=== PATIENT | male | born 2000 | race Caucasian/White ===

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

== ENCOUNTER 2023-06-11 20:19 | Emergency (ER) | payer OTHER, SELFPAY ==
[2023-06-11] MEDS ORDERED: Morphine 4 MG/ML VIAL ONE ×2 (20:54→22:06)
[2023-06-11] MEDS ORDERED: Ondansetron PF 4 MG/2 ML Vial ONE (20:54)
[2023-06-11] MEDS ORDERED: Ketorolac Tromethamine 30 MG/ML VIAL ONE (20:54)
[2023-06-11] MEDS ORDERED: Boostrix 0.5 ML (Tdap) VIAL (>/=7 yrs of age) ONE (21:06)
[2023-06-11] MEDS ORDERED: Lidocaine 1% w/Epinephrine 1:100K 20 ML VIAL ONE (22:06)
== END 2023-06-12 00:06 | disposition home or self-care (01) ==
LOC: ERS 20:19
DX: S51.841A Puncture wound with foreign body of right forearm, initial encounter (principal); F17.210 Nicotine dependence, cigarettes, uncomplicated; W20.8XXA Other cause of strike by thrown, projected or falling object, initial encounter; W45.8XXA Other foreign body or object entering through skin, initial encounter; Z23 Encounter for immunization
CPT/HCPCS: 10120; 12001; 90471; 90715; 96374; 96375; 96376; J1885; J2270; J2405

== ENCOUNTER 2024-03-08 09:04 | Emergency (ER) | payer SELFPAY ==
[2024-03-08] MEDS ORDERED: Fluorescein Opthalmic Strip ONE (10:04)
[2024-03-08] MEDS ORDERED: Proparacaine 0.5% Opth 15 ML BOT ONE (10:04)
== END 2024-03-08 13:20 | disposition home or self-care (01) ==
LOC: ERS 09:04
DX: H10.211 Acute toxic conjunctivitis, right eye (principal); F17.210 Nicotine dependence, cigarettes, uncomplicated
CPT/HCPCS: 99282

== ENCOUNTER 2024-07-26 00:10 | Emergency (ER) | payer SELFPAY ==
[2024-07-26 00:24] LABS: #Basophils 0.05 10x3/uL (0.0-0.2); %Basophils 0.5 % (0.0-1.0); %Eosinophils 2.5 % (0.0-10.0); %Lymphocytes 29.7 % (21.0-51.0); %Monocytes 7.2 % (0.0-10.0); %Neutrophils 57.7 % (42.0-75.0); Hematocrit 48.7 % (42.0-52.0); Hemoglobin 16.2 g/dL (14.0-18.0); Mean Corpuscular HGB CONC 33.3 g/dL (32.0-36.0); Mean Corpuscular Volume 90.2 fL (78.0-98.0); Mean Platelet Volume 9.7 fL (7.4-10.4); Platelet Count 263 10x3/uL (130-400); RBC Distribution Width 12.3 % (11.5-14.5)
[2024-07-26 00:37] LABS: Alcohol 90.7 mg/dL (Less than 10)
[2024-07-26 00:39] LABS: ALT (SGPT) 89 U/L (8-55); AST (SGOT) 65 U/L (5-34); Albumin 4.2 g/dL (3.5-5.0); Alkaline Phosphatase 54 U/L (40-110); Anion Gap 19 mmol/L (10-20); BUN (Urea Nitrogen) 12 mg/dL (8.9-20.6); Bilirubin, Total 0.2 mg/dL (0.2-1.2); Calc. Creatinine Clearance 0 mL/min (70-130); Carbon Dioxide 23 mmol/L (22-29); Chloride 104 mmol/L (98-107); Estimated GFR 130; Globulin 3.9 g/dL (2.4-3.5); Glucose 104 mg/dL (70-105); Potassium 3.5 mmol/L (3.5-5.1); Protein, Total 8.1 g/dL (6.0-8.3); Sodium 142 mmol/L (136-145)
[2024-07-26] MEDS ORDERED: Boostrix 0.5 ML (Tdap) VIAL (>/=7 yrs of age) ONE (01:45)
[2024-07-26] MEDS ORDERED: Iopamidol 370 76% 100 ML VIAL ONE (06:59)
== END 2024-07-26 02:50 | disposition home or self-care (01) ==
LOC: ERS 00:10
DX: S16.1XXA Strain of muscle, fascia and tendon at neck level, initial encounter (principal); F17.210 Nicotine dependence, cigarettes, uncomplicated; V89.2XXA Person injured in unspecified motor-vehicle accident, traffic, initial encounter
CPT/HCPCS: 70450; 71260; 72125; 74177; 80053; 80307; 85025; 90471; 90715; G0390; Q9967

== ENCOUNTER 2025-05-12 08:01 | Emergency (ER) | payer SELFPAY ==
[2025-05-12] MEDS ORDERED: Lidocaine 1% w/Epinephrine 1:100K 20 ML VIAL ONE (08:12)
[2025-05-12] MEDS ORDERED: Ketorolac Tromethamine 30 MG (1 mL) VIAL ONE (08:53)
[2025-05-12] MEDS ORDERED: Bacitracin 1 PK ONE (10:23)
[2025-05-12] MEDS ORDERED: cefTRIAXone (ROCEPHIN) 2 GM VIAL ONE (11:23)
[2025-05-12] MEDS ORDERED: Lidocaine 1% PF 5 ML VIAL ONE (11:23)
== END 2025-05-12 13:30 | disposition home or self-care (01) ==
LOC: ERS 08:01
DX: S62.612A Displaced fracture of proximal phalanx of right middle finger, initial encounter for closed fracture (principal); S62.633A Displaced fracture of distal phalanx of left middle finger, initial encounter for closed fracture; F17.210 Nicotine dependence, cigarettes, uncomplicated; W22.01XA Walked into wall, initial encounter
CPT/HCPCS: 96372; 99283; J0696; J1885

== ENCOUNTER 2025-09-13 21:08 | Emergency (ER) | payer SELFPAY ==
[2025-09-13 21:32] LABS: #Basophils 0.04 10x3/uL (0.0-0.2); #Eosinophils 0.03 10x3/uL (0.0-0.7); #Monocytes 0.54 10x3/uL (0.11-0.59); #Neutrophils 2.93 10x3/uL (1.40-6.50); %Basophils 0.6 % (0.0-1.0); %Eosinophils 0.5 % (0.0-10.0); %Lymphocytes 43.8 % (21.0-51.0); %Monocytes 8.5 % (0.0-10.0); %Neutrophils 46.3 % (42.0-75.0); Hematocrit 47.3 % (42.0-52.0); Hemoglobin 16.4 g/dL (14.0-18.0); Mean Corpuscular Hemoglobin 29.8 pg (27.0-31.0); Mean Corpuscular Volume 85.8 fL (78.0-98.0); Platelet Count 251 10x3/uL (130-400); Red Blood Cell (RBC) Count 5.51 mill/uL (4.70-6.10); White Blood Cell (WBC) Count 6.34 10x3/uL (4.8-10.8)
[2025-09-13 21:46] LABS: ALT (SGPT) 21 U/L (Less than 45); AST (SGOT) 32 U/L (11-34); Albumin 5.1 g/dL (3.1-4.5); Alkaline Phosphatase 48 U/L (40-110); Anion Gap 17 mmol/L (10-20); BUN (Urea Nitrogen) 11 mg/dL (8.9-20.6); Bilirubin, Total 0.3 mg/dL (0.3-1.2); Calc. Creatinine Clearance 0 mL/min (70-130); Calcium 9.7 mg/dL (7.8-10.44); Carbon Dioxide 24 mmol/L (22-29); Chloride 106 mmol/L (98-107); Globulin 3.2 g/dL (2.4-3.5); Glucose 100 mg/dL (70-105); Potassium 3.7 mmol/L (3.5-5.1); Sodium 143 mmol/L (136-145)
[2025-09-13] MEDS ORDERED: Ondansetron PF 4 MG/2 ML Vial ONE (21:57)
[2025-09-13] MEDS ORDERED: Fluorescein Opthalmic Strip ONE (22:52)
[2025-09-13] MEDS ORDERED: Proparacaine 0.5% Opth 15 ML BOT ONE (22:53)
[2025-09-13] MEDS ORDERED: Bacitracin 1 PK ONE (23:57)
== END 2025-09-14 00:05 | disposition home or self-care (01) ==
LOC: ERS 21:08
DX: S02.2XXA Fracture of nasal bones, initial encounter for closed fracture (principal); S01.81XA Laceration without foreign body of other part of head, initial encounter; S09.90XA Unspecified injury of head, initial encounter; F17.210 Nicotine dependence, cigarettes, uncomplicated; Y04.8XXA Assault by other bodily force, initial encounter
CPT/HCPCS: 70450; 70486; 72125; 80053; 85025; 96374; 96375; J2270; J2405

== ENCOUNTER 2025-10-13 03:42 | Emergency (ER) | payer SELFPAY ==
[2025-10-13] MEDS ORDERED: Albuterol 2.5 MG (3 mL) NEB ONE (04:33)
[2025-10-13] MEDS ORDERED: Ketorolac Tromethamine 30 MG (1 mL) VIAL ONE (05:11)
== END 2025-10-13 05:39 | disposition home or self-care (01) ==
LOC: ERS 03:42
DX: J20.9 Acute bronchitis, unspecified (principal); R11.2 Nausea with vomiting, unspecified; B34.9 Viral infection, unspecified; Z87.891 Personal history of nicotine dependence
CPT/HCPCS: 71045; 93005; J1885; J7611; Q0162